=== PATIENT | male | born 1970 | race Caucasian/White ===

== ENCOUNTER 2021-12-26 08:31 | Emergency (ER) | payer MEDICAID ==
[~2021-12-26] VITALS: Ht 182.9 cm; Wt 113.6 kg
[2021-12-26 08:35] VITALS: BP 168/99
[2021-12-26 09:15] LABS: BASOPHILS # (AUTO) 0.1 X10'3 (0-0.2); BASOPHILS % (AUTO) 0.5 % (0-1); EOSINOPHILS # (AUTO) 0.1 X10'3 (0-0.9); EOSINOPHILS % (AUTO) 0.9 % (0-6); HEMATOCRIT 47.3 % (42.0-52.0); LYMPHOCYTES % (AUTO) 12.2 % (21-51); MEAN CORPUSCULAR HGB CONC 33.9 g/dL (33.0-36.5); MEAN CORPUSCULAR VOLUME 85.5 FL (78-98); MEAN PLATELET VOLUME 9.4 FL (7.4-10.4); MONOCYTES # (AUTO) 1.3 X10'3 (0-0.9); MONOCYTES % (AUTO) 8.1 % (2-12); NEUTROPHILS % (AUTO) 78.3 % (42-75); PLATELET COUNT 245 X10'3 (140-440); RED BLOOD COUNT 5.53 X10'6 (4.70-6.10); RED CELL DISTRIBUTION WIDTH 13.9 % (11.5-14.5); WHITE BLOOD COUNT 16.6 X10'3 (4.5-11.0)
[2021-12-26 09:24] LABS: ALANINE AMINOTRANSFERASE 73 U/L (12-78); ALBUMIN 3.7 G/DL (3.4-5.0); ALKALINE PHOSPHATASE 106 IU/L (46-116); ANION GAP 6 (8-16); ASPARTATE AMINO TRANSFERASE 29 U/L (10-37); BILIRUBIN,TOTAL 0.6 MG/DL (0.1-1.0); BLOOD UREA NITROGEN 15 MG/DL (7-18); BUN/CREATININE RATIO 14.4 (5.4-32.0); CALCIUM 9.2 MG/DL (8.5-10.1); CHLORIDE 102 MMOL/L (99-107); CREATININE 1.04 MG/DL (0.60-1.10); GLUCOSE 115 MG/DL (70-104); SODIUM 140 MMOL/L (135-145); TOTAL CARBON DIOXIDE 32.4 MMOL/L (24-32); TOTAL PROTEIN 7.5 G/DL (6.4-8.2); eGFR 75 ML/MIN
== END 2021-12-26 13:57 | disposition left against medical advice (07) ==
LOC: ER 08:31
DX: R07.9 Chest pain, unspecified (principal); Z53.21 Procedure and treatment not carried out due to patient leaving prior to being seen by health care provider
CPT/HCPCS: 36415; 71045; 80053; 83880; 84484; 85025

== ENCOUNTER 2022-03-09 09:01 | Inpatient (IN) | payer MEDICAID ==
[~2022-03-09] VITALS: Ht 180.3 cm; Wt 95.5 kg
[2022-03-09] MEDS ORDERED: midazolam 1 mg/ML 2ml injection IV ONE (09:05)
[2022-03-09] MEDS ORDERED: methylPREDNISolone sod succ 125mg/2ml vial IV ONE (09:05)
[2022-03-09] MEDS ORDERED: albuterol 2.5 MG/3 ML nebule CONTNEB PRN (09:05)
[2022-03-09 09:26] LABS: ABG BASE EXCESS -10.4 mmol/L (-2.0-2.0); ABG HCO3 17.3 mmol/L (22.0-26.0); ABG OXYGEN SATURATION 97.4 % (94-97); ABG PCO2 (T) 43.5 mmHg (35.0-48.0); ABG PO2 (T) 110.1 mmHg (75.0-100.0); ALLEN'S TEST POSITIVE; FCOHb 0.3 % (0.0-3.9); FMetHb 0.4 % (0.0-1.5); FO2Hb 96.7 % (94-97); PATIENT TEMPERATURE 36.6; TOTAL HEMOGLOBIN 20.2 G/dl (14.0-17.9)
[2022-03-09 09:34] LABS: BASOPHILS # (AUTO) 0.1 X10'3 (0-0.2); BASOPHILS % (AUTO) 0.8 % (0-1); EOSINOPHILS % (AUTO) 0.5 % (0-6); HEMATOCRIT 54.7 % (42.0-52.0); LYMPHOCYTES # (AUTO) 3.9 X10'3 (1.1-4.8); LYMPHOCYTES % (AUTO) 38.4 % (21-51); MEAN CORPUSCULAR HEMOGLOBIN 29.2 PG (27.0-31.0); MEAN CORPUSCULAR VOLUME 88.7 FL (78-98); MEAN PLATELET VOLUME 9.8 FL (7.4-10.4); MONOCYTES # (AUTO) 1.6 X10'3 (0-0.9); MONOCYTES % (AUTO) 15.7 % (2-12); NEUTROPHILS # (AUTO) 4.5 X10'3 (1.8-7.7); NEUTROPHILS % (AUTO) 44.6 % (42-75); PLATELET COUNT 255 X10'3 (140-440); RED BLOOD COUNT 6.17 X10'6 (4.70-6.10); RED CELL DISTRIBUTION WIDTH 14.9 % (11.5-14.5); WHITE BLOOD COUNT 10.2 X10'3 (4.5-11.0)
[2022-03-09 10:05] LABS: ALANINE AMINOTRANSFERASE 84 U/L (12-78); ALBUMIN 3.9 G/DL (3.4-5.0); ALBUMIN/GLOBULIN RATIO 0.9 (1.1-1.5); ALKALINE PHOSPHATASE 131 IU/L (46-116); ANION GAP 19 (8-16); ASPARTATE AMINO TRANSFERASE 55 U/L (10-37); BILIRUBIN,TOTAL 0.4 MG/DL (0.1-1.0); BLOOD UREA NITROGEN 21 MG/DL (7-18); BUN/CREATININE RATIO 12.7 (5.4-32.0); CALCIUM 9.4 MG/DL (8.5-10.1); CHLORIDE 99 MMOL/L (99-107); CREATININE 1.66 MG/DL (0.60-1.10); GLUCOSE 191 MG/DL (70-104); POTASSIUM 4.1 MMOL/L (3.5-5.1); SODIUM 137 MMOL/L (135-145); TOTAL CARBON DIOXIDE 19.1 MMOL/L (24-32); TOTAL PROTEIN 8.4 G/DL (6.4-8.2); eGFR 44 ML/MIN
[2022-03-09] MEDS ORDERED: HYDROcodone/acetaminophen 5mg/325mg tablet PO PRN (11:45)
[2022-03-09] MEDS ORDERED: morphine 2 MG/ML inj. syringe IV PRN ×2 (11:45)
[2022-03-09] MEDS ORDERED: mag hydrox/Alum hydrox/simeth 30ml oral suspension PO PRN (11:45)
[2022-03-09] MEDS ORDERED: ondansetron/PF 4mg/2ml inj IV PRN (11:45)
[2022-03-09] MEDS ORDERED: magnesium hydroxide 30ml (MOM) UD suspension PO PRN (11:45)
[2022-03-09] MEDS ORDERED: acetaminophen 325mg tablet PO PRN ×2 (11:45)
[2022-03-09] MEDS: oseltamivir phos 75mg capsule PO SCH ×2 (12:32→21:02)
--- NOTE | 2022-03-09 15:08 | NUR ---
PAGER ID: [phone] MESSAGE: Sam Curry in ER 5 is requesting medication for anxiety. In ED gave versed to tolerate BIPAP. Dionna
[2022-03-09] MEDS: methylPREDNISolone sod succ 125mg/2ml vial IV SCH (15:24)
[2022-03-09] MEDS: LORazepam 2 mg/ml vial IV PRN (15:24)
[2022-03-09] MEDS: docusate sod 100mg capsule PO SCH (21:02)
[2022-03-10] MEDS: methylPREDNISolone sod succ 125mg/2ml vial IV SCH ×4 (00:06→23:31)
--- NOTE | 2022-03-10 03:12 | NUR ---
Patient woke at this time, labs obtained. Patient denies needs. Patient remains on cardiac, spo2, nibp monitoring.
[2022-03-10 03:53] LABS: BASOPHILS % (AUTO) 0 % (0-1); EOSINOPHILS % (AUTO) 0 % (0-6); HEMATOCRIT 51.1 % (42.0-52.0); HEMOGLOBIN 17.1 g/dl (14.0-17.9); LYMPHOCYTES # (AUTO) 0.7 X10'3 (1.1-4.8); LYMPHOCYTES % (AUTO) 7.8 % (21-51); MEAN CORPUSCULAR HEMOGLOBIN 29.1 PG (27.0-31.0); MEAN CORPUSCULAR HGB CONC 33.4 g/dL (33.0-36.5); MEAN PLATELET VOLUME 9.9 FL (7.4-10.4); MONOCYTES # (AUTO) 0.3 X10'3 (0-0.9); MONOCYTES % (AUTO) 3.6 % (2-12); NEUTROPHILS # (AUTO) 7.7 X10'3 (1.8-7.7); NEUTROPHILS % (AUTO) 88.6 % (42-75); PLATELET COUNT 249 X10'3 (140-440); RED BLOOD COUNT 5.88 X10'6 (4.70-6.10); RED CELL DISTRIBUTION WIDTH 14.8 % (11.5-14.5); WHITE BLOOD COUNT 8.7 X10'3 (4.5-11.0)
[2022-03-10 04:58] LABS: ALBUMIN 3.7 G/DL (3.4-5.0); ANION GAP 13 (8-16); BLOOD UREA NITROGEN 27 MG/DL (7-18); BUN/CREATININE RATIO 21.3 (5.4-32.0); CALCIUM 9.2 MG/DL (8.5-10.1); CHLORIDE 101 MMOL/L (99-107); CREATININE 1.27 MG/DL (0.60-1.10); GLUCOSE 149 MG/DL (70-104); SODIUM 137 MMOL/L (135-145); TOTAL CARBON DIOXIDE 23.5 MMOL/L (24-32); eGFR 60 ML/MIN
[2022-03-10] MEDS: oseltamivir phos 75mg capsule PO SCH ×2 (07:55→19:17)
[2022-03-10] MEDS: enoxaparin 40mg/0.4ml syringe SUBCUT SCH (07:55)
[2022-03-10] MEDS: docusate sod 100mg capsule PO SCH ×2 (07:55→19:18)
--- NOTE | 2022-03-10 08:36 | NUR ---
patient eating breakfast, bipap off, patient placed on nc 4L, tolerating well, sating 95%. We will monitor.
[2022-03-10] MEDS: LORazepam 2 mg/ml vial IV PRN ×2 (11:12→21:39)
--- NOTE | 2022-03-10 12:01 | NUR ---
Patient on NC 2L sating 94%, trialed taking him off oxygen RA 02 89%.
--- NOTE | 2022-03-10 16:11 | NUR ---
Failed atempt to give report to [facility] [facility].Will call back after 10 minutes.
--- NOTE | 2022-03-10 16:44 | NUR ---
Patient in room ED 5. I have received report from Jodi in the ED and had the opportunity to ask questions and assume patient care.
[2022-03-10 17:40] VITALS: BP 128/89
[2022-03-10] MEDS ORDERED: FLUT1BLS4 INH (17:51)
--- NOTE | 2022-03-10 17:54 | NUR ---
RE: [id number], pt requesting to use his home med Treducgy, please advise. Thank you aMla
--- NOTE | 2022-03-10 17:54 | NUR ---
Pt did bring in home med Theo, taken to pharmacy
[2022-03-10 18:00] VITALS: BP 146/93
--- NOTE | 2022-03-10 18:22 | NUR ---
Problems reprioritized. Patient report given, questions answered & plan of care reviewed with
[2022-03-10 23:35] VITALS: BP 159/86
[2022-03-11 02:18] VITALS: BP 121/68
[2022-03-11 06:00] VITALS: BP 119/75
[2022-03-11 06:10] LABS: EOSINOPHILS % (AUTO) 0 % (0-6); MEAN CORPUSCULAR HEMOGLOBIN 29.5 PG (27.0-31.0); MONOCYTES # (AUTO) 1.3 X10'3 (0-0.9)
[2022-03-11 06:15] LABS: BASOPHILS % (AUTO) 0 % (0-1); HEMATOCRIT 51.4 % (42.0-52.0); HEMOGLOBIN 17.5 g/dl (14.0-17.9); LYMPHOCYTES # (AUTO) 1.5 X10'3 (1.1-4.8); LYMPHOCYTES % (AUTO) 8.5 % (21-51); MEAN CORPUSCULAR VOLUME 86.9 FL (78-98); MEAN PLATELET VOLUME 9.9 FL (7.4-10.4); MONOCYTES % (AUTO) 7.5 % (2-12); NEUTROPHILS # (AUTO) 14.6 X10'3 (1.8-7.7); PLATELET COUNT 258 X10'3 (140-440); RED BLOOD COUNT 5.91 X10'6 (4.70-6.10); RED CELL DISTRIBUTION WIDTH 14.9 % (11.5-14.5); WHITE BLOOD COUNT 17.3 X10'3 (4.5-11.0)
[2022-03-11 06:38] LABS: ALBUMIN 3.6 G/DL (3.4-5.0); CHLORIDE 102 MMOL/L (99-107); GLUCOSE 131 MG/DL (70-104); POTASSIUM 5.2 MMOL/L (3.5-5.1); SODIUM 138 MMOL/L (135-145)
--- NOTE | 2022-03-11 07:06 | NUR ---
I received report from YAA Hoffman
[2022-03-11 07:11] LABS: ANION GAP 13 (8-16); BLOOD UREA NITROGEN 42 MG/DL (7-18); BUN/CREATININE RATIO 33.6 (5.4-32.0); CREATININE 1.25 MG/DL (0.60-1.10); TOTAL CARBON DIOXIDE 22.6 MMOL/L (24-32); eGFR 61 ML/MIN
[2022-03-11] MEDS: methylPREDNISolone sod succ 125mg/2ml vial IV SCH (07:53)
[2022-03-11] MEDS: oseltamivir phos 75mg capsule PO SCH (07:53)
[2022-03-11] MEDS: docusate sod 100mg capsule PO SCH (07:53)
[2022-03-11] MEDS: enoxaparin 40mg/0.4ml syringe SUBCUT SCH (07:54)
[2022-03-11 12:00] VITALS: BP 145/89
[2022-03-11] MEDS: LORazepam 2 mg/ml vial IV PRN (12:14)
[2022-03-11] MEDS ORDERED: ALBU6.7H14 INH (14:04)
[2022-03-11] MEDS ORDERED: TAM75C PO (14:04)
[2022-03-11] MEDS ORDERED: PRED10TA23 PO (14:04)
== END 2022-03-11 16:10 | disposition home or self-care (01) | DRG 140 ==
LOC: ER 09:01 → ED HOLD 11:47 → EDBEDREQ 03-10 15:22 → PCU 3S 03-10 16:55
PROVIDERS: ADMIT Internal Medicine; ATTEND Internal Medicine
PROC: 5A09357 Assistance with Respiratory Ventilation, Less than 24 Consecutive Hours, Continuous Positive Airway Pressure (ICD-10-PCS; principal; 2022-03-09)
PROC: 5A09357 Assistance with Respiratory Ventilation, Less than 24 Consecutive Hours, Continuous Positive Airway Pressure (ICD-10-PCS; 2022-03-10)
DX: J44.1 Chronic obstructive pulmonary disease with (acute) exacerbation (principal); J96.01 Acute respiratory failure with hypoxia; N17.9 Acute kidney failure, unspecified; E87.20 Acidosis, unspecified; Z20.822 Contact with and (suspected) exposure to COVID-19; F12.90 Cannabis use, unspecified, uncomplicated; J10.1 Influenza due to other identified influenza virus with other respiratory manifestations; F41.9 Anxiety disorder, unspecified; G89.29 Other chronic pain; R74.01 Elevation of levels of liver transaminase levels; Z87.891 Personal history of nicotine dependence; Z28.310 Unvaccinated for COVID-19
CPT/HCPCS: 36415; 36600; 71045; 80048; 80053; 82803; 83605; 83880; 84484; 85018; 85025; 87040; 87502; 87503; 87811; 94640; 94660; 94760; 96374; 96375; 99291; A4615; A7015; G0378; J1650; J2060; J2250; J2405; J2930